=== PATIENT | male | born 1935 | race Caucasian/White ===

== ENCOUNTER 2019-05-12 18:56 | Inpatient (IN) | payer MEDICARE, OTHER ==
[~2019-05-12] VITALS: Ht 165.1 cm; Wt 84.8 kg
[~2019-05-12 18:56] MED LIST: ATOR80TA PO; CLOP75TA15 PO; FENO145T38 PO; FURO40TA4 PO; ISOS60TA4 PO; METO-384 PO
[2019-05-12 19:23] LABS: BASOPHILS % (AUTO) 0.3 % (0-1); EOSINOPHILS # (AUTO) 0.3 X10'3 (0-0.9); EOSINOPHILS % (AUTO) 2.3 % (0-6); HEMATOCRIT 47.9 % (42.0-52.0); HEMOGLOBIN 15.8 g/dl (14.0-17.9); LYMPHOCYTES # (AUTO) 2.7 X10'3 (1.1-4.8); LYMPHOCYTES % (AUTO) 23.3 % (21-51); MEAN CORPUSCULAR HEMOGLOBIN 30.7 PG (27.0-31.0); MEAN CORPUSCULAR VOLUME 92.8 FL (78-98); MONOCYTES % (AUTO) 8.6 % (2-12); NEUTROPHILS # (AUTO) 7.6 X10'3 (1.8-7.7); NEUTROPHILS % (AUTO) 65.5 % (42-75); PLATELET COUNT 223 X10'3 (140-440); RED BLOOD COUNT 5.16 X10'6 (4.70-6.10); RED CELL DISTRIBUTION WIDTH 13.6 % (11.5-14.5); WHITE BLOOD COUNT 11.7 X10'3 (4.5-11.0)
[2019-05-12 19:36] LABS: ALANINE AMINOTRANSFERASE 46 U/L (12-78); ALBUMIN 3.5 G/DL (3.4-5.0); ALBUMIN/GLOBULIN RATIO 0.8 (1.1-1.5); ALKALINE PHOSPHATASE 122 IU/L (46-116); ANION GAP 9 (8-16); ASPARTATE AMINO TRANSFERASE 29 U/L (10-37); BILIRUBIN,TOTAL 0.9 MG/DL (0.1-1.0); BLOOD UREA NITROGEN 19 MG/DL (7-18); BUN/CREATININE RATIO 15.4 (5.4-32.0); CALCIUM 9.3 MG/DL (8.5-10.1); CHLORIDE 105 MMOL/L (99-107); CREATININE 1.23 MG/DL (0.60-1.10); GLUCOSE 160 MG/DL (70-104); POTASSIUM 3.9 MMOL/L (3.5-5.1); SODIUM 142 MMOL/L (135-145); TOTAL CARBON DIOXIDE 27.6 MMOL/L (24-32); TOTAL PROTEIN 7.9 G/DL (6.4-8.2); eGFR 56 ML/MIN
[2019-05-12 19:39] LABS: TROPONIN I < 0.04 NG/ML (0.0-0.05)
[2019-05-12 19:41] LABS: PARTIAL THROMBOPLASTIN TIME 29 SECONDS (22-32)
[2019-05-12] MEDS ORDERED: aspirin 325mg tablet PO ONE (20:55)
--- NOTE | 2019-05-12 21:27 | NUR ---
TELE NEURO IN PROGRESS AT THIS TIME.
--- NOTE | 2019-05-12 21:40 | NUR ---
Neuro consult completed with tele-neuro MD.
[2019-05-12] MEDS ORDERED: CHOL10002 PO (22:22)
[2019-05-12] MEDS ORDERED: LORA0.5T PO (22:22)
[2019-05-12] MEDS ORDERED: METO50TA17 PO (22:22)
[2019-05-12] MEDS ORDERED: ATOR-2 PO (22:22)
[2019-05-12] MEDS ORDERED: SITA50TA PO (22:22)
[2019-05-12] MEDS ORDERED: METF-438 PO (22:22)
[2019-05-12] MEDS ORDERED: POTA20TA19 PO (22:22)
[2019-05-12] MEDS ORDERED: OLAN5TAB26 PO (22:22)
[2019-05-12] MEDS ORDERED: LEVO100T9 PO (22:22)
[2019-05-12] MEDS ORDERED: potassium Cl 20 mEq SR tablet PO PRN ×2 (23:00)
[2019-05-12] MEDS ORDERED: magnesium 2GM in 50ml NS 50 ML IV PRN (23:00)
[2019-05-12] MEDS ORDERED: magnesium 4gm in 100ml NS 100 ML IV PRN (23:00)
[2019-05-12] MEDS ORDERED: magnesium hydroxide 30ml (MOM) UD suspension PO PRN (23:00)
[2019-05-12] MEDS ORDERED: magnesium Cl slow-release 64mg tablet PO PRN (23:00)
[2019-05-12] MEDS ORDERED: ondansetron/PF 4mg/2ml inj IV PRN (23:00)
[2019-05-12] MEDS ORDERED: mag hydrox/Alum hydrox/simeth 30ml oral suspension PO PRN (23:00)
[2019-05-12] MEDS ORDERED: potassium CL 10mEq/100ml bag 100 ML IV PRN ×2 (23:00)
[2019-05-12] MEDS ORDERED: acetaminophen 325mg tablet PO PRN ×2 (23:00)
[2019-05-13 00:35] VITALS: BP 135/71
[2019-05-13] MEDS ORDERED: dextrose ORAL solution 15 GM/59 ML bottle PO PRN ×2 (01:00)
[2019-05-13] MEDS ORDERED: LORazepam 0.5 MG tablet PO PRN (01:00)
[2019-05-13] MEDS ORDERED: MESSAGE TO PHARMACY PO ONE (01:00)
[2019-05-13] MEDS ORDERED: glucagon, human recombinant 1mg kit SUBCUT PRN (01:00)
[2019-05-13] MEDS ORDERED: dextrose 50%-water 50ml dispensing syringe IV PRN ×2 (01:00)
[2019-05-13] MEDS ORDERED: insulin Lispro (HumaLOG) vial - multi-dose SQ SCH (01:00)
--- NOTE | 2019-05-13 01:22 | NUR ---
Report taken by other nurse, erin Hernández.. Pt is transferred up to the floor via gurney and one attendant. Transferred to bed via slide board and four attendants. Pt VSS, pt is A&Ox zero. cannot perform DART r/t pt inability to answer questions. Tele neuro consult provided. CT (-) for acute findings. Bed alarm enabled for safety.
[2019-05-13 06:00] VITALS: BP 141/73
--- NOTE | 2019-05-13 06:00 | NUR ---
Patient in room ORTHO 4009. I have received report from Iva LI and had the opportunity to ask questions and assume patient care.
[2019-05-13 06:04] LABS: BASOPHILS % (AUTO) 0.4 % (0-1); EOSINOPHILS # (AUTO) 0.3 X10'3 (0-0.9); EOSINOPHILS % (AUTO) 2.7 % (0-6); HEMATOCRIT 43.8 % (42.0-52.0); HEMOGLOBIN 14.6 g/dl (14.0-17.9); LYMPHOCYTES # (AUTO) 2.6 X10'3 (1.1-4.8); LYMPHOCYTES % (AUTO) 26.8 % (21-51); MEAN CORPUSCULAR HEMOGLOBIN 30.8 PG (27.0-31.0); MEAN CORPUSCULAR HGB CONC 33.4 g/dL (33.0-36.5); MEAN CORPUSCULAR VOLUME 92.4 FL (78-98); MEAN PLATELET VOLUME 8.8 FL (7.4-10.4); MONOCYTES # (AUTO) 0.8 X10'3 (0-0.9); MONOCYTES % (AUTO) 8.8 % (2-12); NEUTROPHILS # (AUTO) 5.8 X10'3 (1.8-7.7); NEUTROPHILS % (AUTO) 61.3 % (42-75); PLATELET COUNT 177 X10'3 (140-440); RED BLOOD COUNT 4.74 X10'6 (4.70-6.10); RED CELL DISTRIBUTION WIDTH 13.5 % (11.5-14.5); WHITE BLOOD COUNT 9.5 X10'3 (4.5-11.0)
--- NOTE | 2019-05-13 06:06 | NUR ---
Report given to erin Dillon.
[2019-05-13 06:21] LABS: HEMOGLOBIN A1C 10.4 % (4.5-6.2)
[2019-05-13 06:38] LABS: ANION GAP 12 (8-16); BLOOD UREA NITROGEN 17 MG/DL (7-18); BUN/CREATININE RATIO 16.8 (5.4-32.0); CALCIUM 8.5 MG/DL (8.5-10.1); CHLORIDE 108 MMOL/L (99-107); CHOL/HDL RATIO 4.2 (0.00-4.99); CHOLESTEROL 110 MG/DL (0-200); CREATININE 1.01 MG/DL (0.60-1.10); GLUCOSE 141 MG/DL (70-104); HDL CHOLESTEROL 26 MG/DL (35-60); LDL CHOLESTEROL 67 MG/DL (50-100); MAGNESIUM 1.4 MG/DL (1.5-2.4); POTASSIUM 3.6 MMOL/L (3.5-5.1); SODIUM 143 MMOL/L (135-145); TOTAL CARBON DIOXIDE 23.5 MMOL/L (24-32); TRIGLYCERIDES 132 MG/DL (20-135); eGFR 70 ML/MIN
[2019-05-13 06:47] VITALS: BP_SYST 119; BP_SYST 124; BP_SYST 130; BP_DIAS 66; BP_DIAS 68; BP_DIAS 73
[2019-05-13] MEDS ORDERED: isosorbide mononitrate 30mg tab.SR.24H PO SCH (08:00)
[2019-05-13] MEDS ORDERED: OLANZAPINE 5 MG TABLET PO SCH (08:00)
[2019-05-13] MEDS ORDERED: levoTHYROXINE 100mcg tablet PO SCH (08:00)
[2019-05-13] MEDS ORDERED: metoprolol tartrate 50mg tablet PO SCH (08:00)
[2019-05-13] MEDS ORDERED: vitamin D (cholecalciferol) 1,000 unit tablet PO SCH (08:00)
[2019-05-13] MEDS ORDERED: K and/or MAG REPLACEMENT MC SCH (08:00)
[2019-05-13] MEDS ORDERED: clopidogrel 75mg tablet PO SCH (08:00)
[2019-05-13] MEDS ORDERED: enoxaparin 40mg/0.4ml syringe SQ SCH (08:00)
[2019-05-13] MEDS ORDERED: aspirin 81mg tablet.DR PO SCH (08:00)
[2019-05-13] MEDS ORDERED: atorvastatin 20mg tablet PO SCH (08:00)
[2019-05-13] MEDS ORDERED: ASPI81TA52 PO (08:21)
[2019-05-13 08:36] VITALS: BP_SYST 141
--- NOTE | 2019-05-13 09:00 | NUR ---
Dr. Jaramillo cancelled MRI and EEG. He believes patient is back to baseline, as he has dementia. Patient appears to be more alert now than when he first got here. Dr. Jaramillo is discharging patient back to [facility].
--- NOTE | 2019-05-13 11:29 | NUR ---
Patient stable for discharge back to [facility]. All belongs sent with patient and caregiver. IV out and discharge papers given to caregiver.
[2019-05-13] MEDS ORDERED: insulin glargine (Lantus) pen - multi-dose SQ SCH (21:00)
== END 2019-05-13 11:10 | DRG 69 ==
LOC: ER 18:57 → ORTHO 4S 23:59 → CMPBEDREQ 05-13 00:52 → ORTHO 4S 05-13 00:58
PROVIDERS: ADMIT Hospitalist; ATTEND Internal Medicine
DX: G45.9 Transient cerebral ischemic attack, unspecified (principal); G93.40 Encephalopathy, unspecified; R47.01 Aphasia; N17.9 Acute kidney failure, unspecified; F03.90 Unspecified dementia, unspecified severity, without behavioral disturbance, psychotic disturbance, mood disturbance, and anxiety; E83.42 Hypomagnesemia; E03.9 Hypothyroidism, unspecified; E78.5 Hyperlipidemia, unspecified; E11.9 Type 2 diabetes mellitus without complications; E78.00 Pure hypercholesterolemia, unspecified; F41.9 Anxiety disorder, unspecified; I10 Essential (primary) hypertension; I48.91 Unspecified atrial fibrillation; Z79.02 Long term (current) use of antithrombotics/antiplatelets; Z79.84 Long term (current) use of oral hypoglycemic drugs; Z79.899 Other long term (current) drug therapy
CPT/HCPCS: 36415; 70450; 71045; 80048; 80053; 80061; 82948; 83036; 83735; 84443; 84484; 85025; 85610; 85730; 87081; 92508; 92616; 93005; 97116; 97161; 97530; 99285; G0378; J1650; J1815

== ENCOUNTER 2019-06-30 16:48 | Inpatient (IN) | payer MEDICARE, OTHER ==
[~2019-06-30] VITALS: Ht 177.8 cm; Wt 91.0 kg
[~2019-06-30 16:48] MED LIST changes: +ATOR-2 PO; -ATOR80TA PO; +CHOL10002 PO; -FENO145T38 PO; +LEVO100T9 PO; +LORA0.5T PO; +METF-438 PO; -METO-384 PO; +METO50TA17 PO; +OLAN5TAB26 PO; +POTA20TA19 PO; +SITA50TA PO
[2019-06-30 17:13] LABS: BASOPHILS # (AUTO) 0.1 X10'3 (0-0.2); BASOPHILS % (AUTO) 0.3 % (0-1); EOSINOPHILS # (AUTO) 0.2 X10'3 (0-0.9); EOSINOPHILS % (AUTO) 1.3 % (0-6); HEMATOCRIT 43.2 % (42.0-52.0); HEMOGLOBIN 14.5 g/dl (14.0-17.9); LYMPHOCYTES # (AUTO) 2.3 X10'3 (1.1-4.8); MEAN CORPUSCULAR HEMOGLOBIN 30.7 PG (27.0-31.0); MEAN CORPUSCULAR HGB CONC 33.5 g/dL (33.0-36.5); MEAN CORPUSCULAR VOLUME 91.6 FL (78-98); MONOCYTES # (AUTO) 1.2 X10'3 (0-0.9); MONOCYTES % (AUTO) 7.8 % (2-12); NEUTROPHILS # (AUTO) 12.4 X10'3 (1.8-7.7); NEUTROPHILS % (AUTO) 76.6 % (42-75); PLATELET COUNT 259 X10'3 (140-440); RED BLOOD COUNT 4.72 X10'6 (4.70-6.10); RED CELL DISTRIBUTION WIDTH 14.5 % (11.5-14.5); WHITE BLOOD COUNT 16.1 X10'3 (4.5-11.0)
[2019-06-30] MEDS ORDERED: normal saline 1000ML IV soln IVB ONE (17:15)
[2019-06-30 17:20] LABS: PARTIAL THROMBOPLASTIN TIME 29 SECONDS (22-32)
[2019-06-30 17:22] LABS: ALANINE AMINOTRANSFERASE 38 U/L (12-78); ALBUMIN 3.9 G/DL (3.4-5.0); ALBUMIN/GLOBULIN RATIO 0.8 (1.1-1.5); ALKALINE PHOSPHATASE 133 IU/L (46-116); ANION GAP 14 (8-16); ASPARTATE AMINO TRANSFERASE 30 U/L (10-37); BILIRUBIN,TOTAL 0.9 MG/DL (0.1-1.0); BLOOD UREA NITROGEN 21 MG/DL (7-18); BUN/CREATININE RATIO 16.9 (5.4-32.0); CALCIUM 9.1 MG/DL (8.5-10.1); CHLORIDE 101 MMOL/L (99-107); CREATININE 1.24 MG/DL (0.60-1.10); GLUCOSE 123 MG/DL (70-104); POTASSIUM 3.6 MMOL/L (3.5-5.1); SODIUM 142 MMOL/L (135-145); TOTAL CARBON DIOXIDE 26.7 MMOL/L (24-32); eGFR 55 ML/MIN
[2019-06-30 17:26] LABS: TROPONIN I < 0.04 NG/ML (0.0-0.05)
--- NOTE | 2019-06-30 17:32 | NUR ---
Called for level 1 stroke alert last known normal 1530 found talking gibberish not normal so 911 was called. Neurotelemedicine evaluation completed and recomendations given to Dr Barnett.
[2019-06-30] MEDS ORDERED: HYDR28CR14 TOP (17:44)
[2019-06-30] MEDS ORDERED: NITR0.4T SL (17:44)
[2019-06-30] MEDS ORDERED: LORA-269 PO (17:48)
[2019-06-30] MEDS ORDERED: levoFLOXACIN-Levaquin 750MG/D5 150 ML IV ONE (17:55)
[2019-06-30] MEDS ORDERED: normal saline 1000ML IV soln IV ONE (17:55)
[2019-06-30 17:59] LABS: CLARITY,URINE CLEAR (Clear); COLOR,URINE YELLOW (Yellow); GLUCOSE, URINE NEGATIVE (Neg); KETONES,URINE NEGATIVE (Neg); LEUKOCYTE ESTERASE ,URINE NEGATIVE (Neg); NITRITES, URINE NEGATIVE (Neg); OCCULT BLOOD,URINE NEGATIVE (Neg); PROTEIN,URINE NEGATIVE (Neg); UROBILINOGEN,URINE 0.2 E.U/dL (0.2-1.0)
[2019-06-30 18:04] LABS: UA COLLECTION TYPE STRAIGHT CATH
[2019-06-30] MEDS ORDERED: vancomycin/NS 1 GM ADD-VANTAGE 250 ML IV ONE (18:35)
--- NOTE | 2019-06-30 20:28 | NUR ---
Pt turned and changed out of urine saturated diaper. Tympanic temp 101.4, hr 114. Dr. Gonsalves notified and rectal tylenol ordered. currently receiving vancomycin and fluid bolus.
[2019-06-30] MEDS ORDERED: acetaminophen 325mg rectal suppository RC ONE (20:35)
[2019-06-30] MEDS ORDERED: acetaminophen 650mg rectal suppository RC ONE ×2 (20:51→20:52)
--- NOTE | 2019-06-30 21:40 | NUR ---
dr veliz, hospitalist , at bedside for admission.
[2019-06-30] MEDS ORDERED: glucagon, human recombinant 1mg kit SUBCUT PRN (21:55)
[2019-06-30] MEDS ORDERED: insulin Lispro (HumaLOG) vial - multi-dose SQ SCH (21:55)
[2019-06-30] MEDS ORDERED: dextrose ORAL solution 15 GM/59 ML bottle PO PRN ×2 (21:55)
[2019-06-30] MEDS ORDERED: acetaminophen 325mg tablet PO PRN ×2 (21:55)
[2019-06-30] MEDS ORDERED: cefepime 2gm inj IV SCH (21:55)
[2019-06-30] MEDS ORDERED: magnesium hydroxide 30ml (MOM) UD suspension PO PRN (21:55)
[2019-06-30] MEDS ORDERED: ondansetron/PF 4mg/2ml inj IV PRN (21:55)
[2019-06-30] MEDS ORDERED: MESSAGE TO PHARMACY PO ONE (21:55)
[2019-06-30] MEDS ORDERED: dextrose 50%-water 50ml dispensing syringe IV PRN ×2 (21:55)
[2019-06-30] MEDS ORDERED: mag hydrox/Alum hydrox/simeth 30ml oral suspension PO PRN (21:55)
[2019-06-30] MEDS: azithromycin/NS 500mg/250ml 250 ML IV SCH (22:09)
[2019-06-30] MEDS: normal saline 1000ml 1,000 ML IV SCH (22:10)
[2019-06-30] MEDS ORDERED: LORazepam 0.5 MG tablet PO PRN (22:35)
--- NOTE | 2019-06-30 22:45 | NUR ---
PT ARRIVED TO 4011B FROM ER. PT IS ORIENTED TO SELF ONLY AND NOT FOLLOWING DIRECTIONS. ON SOFT RESTRAINT ON BILAT WRISTS FOR NOW. VSS. 2 RN SKIN CHECK PERFORMED. RECEIVED REPORT FROM [facility] PRIOR TO PT'S ARRIVAL.
[2019-06-30 23:11] VITALS: BP 102/55
[2019-06-30] MEDS: cefepime 2g/NS 100ml ADVANTAGE 100 ML IV SCH (23:21)
[2019-07-01 02:00] VITALS: BP 116/59
[2019-07-01 06:00] VITALS: BP 112/64
--- NOTE | 2019-07-01 06:14 | NUR ---
Patient in room ORTHO 4011. I have received report from and had the opportunity to ask questions and assume patient care GUILLERMO Hoffman.
[2019-07-01 06:17] LABS: BASOPHILS % (AUTO) 0.1 % (0-1); EOSINOPHILS # (AUTO) 0.2 X10'3 (0-0.9); EOSINOPHILS % (AUTO) 1.5 % (0-6); HEMATOCRIT 40.1 % (42.0-52.0); HEMOGLOBIN 13.5 g/dl (14.0-17.9); LYMPHOCYTES # (AUTO) 2.5 X10'3 (1.1-4.8); MEAN CORPUSCULAR HEMOGLOBIN 30.8 PG (27.0-31.0); MEAN CORPUSCULAR HGB CONC 33.6 g/dL (33.0-36.5); MEAN CORPUSCULAR VOLUME 91.6 FL (78-98); MEAN PLATELET VOLUME 9.4 FL (7.4-10.4); MONOCYTES # (AUTO) 1.2 X10'3 (0-0.9); MONOCYTES % (AUTO) 7.7 % (2-12); NEUTROPHILS # (AUTO) 11.6 X10'3 (1.8-7.7); NEUTROPHILS % (AUTO) 74.7 % (42-75); PLATELET COUNT 174 X10'3 (140-440); RED BLOOD COUNT 4.37 X10'6 (4.70-6.10); RED CELL DISTRIBUTION WIDTH 15.1 % (11.5-14.5); WHITE BLOOD COUNT 15.5 X10'3 (4.5-11.0)
--- NOTE | 2019-07-01 06:42 | NUR ---
Problems reprioritized. Patient report given, questions answered & plan of care reviewed with GUILLERMO DE LOS SANTOS.
[2019-07-01 07:00] VITALS: BP 118/59
[2019-07-01 07:08] LABS: ANION GAP 12 (8-16); BLOOD UREA NITROGEN 15 MG/DL (7-18); BUN/CREATININE RATIO 16.5 (5.4-32.0); CALCIUM 7.9 MG/DL (8.5-10.1); CHLORIDE 108 MMOL/L (99-107); CREATININE 0.91 MG/DL (0.60-1.10); GLUCOSE 82 MG/DL (70-104); SODIUM 143 MMOL/L (135-145); TOTAL CARBON DIOXIDE 22.8 MMOL/L (24-32); eGFR 79 ML/MIN
[2019-07-01 07:09] LABS: POTASSIUM 2.7 MMOL/L (3.5-5.1)
--- NOTE | 2019-07-01 07:26 | NUR ---
Dr Jaramillo: PAGER ID: [phone] MESSAGE: [phone] Juan Antonio Calderon: CRITICAL LAB: Potassium 2.7. Need replacement protocol order. Thank you, Rosetta [phone]
[2019-07-01] MEDS: cefepime 2g/NS 100ml ADVANTAGE 100 ML IV SCH ×2 (07:50→21:54)
[2019-07-01] MEDS: normal saline 1000ml 1,000 ML IV SCH ×2 (07:52→17:52)
[2019-07-01] MEDS: azithromycin/NS 500mg/250ml 250 ML IV SCH (08:00)
[2019-07-01] MEDS: furosemide 40mg tablet PO SCH ×2 (08:00→19:06)
[2019-07-01] MEDS: levoTHYROXINE 100mcg tablet PO SCH (08:17)
[2019-07-01] MEDS: clopidogrel 75mg tablet PO SCH (08:18)
[2019-07-01] MEDS: isosorbide mononitrate 30mg tab.SR.24H PO SCH (08:19)
[2019-07-01] MEDS: enoxaparin 40mg/0.4ml syringe SUBCUT SCH (08:19)
[2019-07-01] MEDS: metoprolol tartrate 50mg tablet PO SCH ×2 (08:28→19:07)
[2019-07-01] MEDS: atorvastatin 20mg tablet PO SCH (08:28)
[2019-07-01] MEDS: linagliptin 5mg tablet PO SCH (08:29)
[2019-07-01] MEDS: potassium Cl 20 mEq SR tablet PO SCH (08:29)
[2019-07-01] MEDS: OLANZAPINE 5 MG TABLET PO SCH (08:29)
[2019-07-01] MEDS: vitamin D (cholecalciferol) 1,000 unit tablet PO SCH (08:29)
[2019-07-01 09:30] VITALS: BP 126/53
[2019-07-01] MEDS: diphenhydrAMINE 25mg capsule PO PRN ×2 (10:44→22:47)
--- NOTE | 2019-07-01 11:40 | NUR ---
Student Medication Administration:For this medication-pass time frame 5600-3340, all medications were reviewed, administered and documented per hospital policy by Fidel Crespo. Student documentation:I have reviewed and agree with all interventions, assessments performed and documented by Fidel Crespo.
--- NOTE | 2019-07-01 12:15 | NUR ---
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 Rash spreading, increased itch after oral/topical benedryl. Pt increased agitation. Requiring a sitter in room. thank you, Rosetta [phone]
[2019-07-01] MEDS ORDERED: potassium CL 10mEq/100ml bag 100 ML IV PRN (13:35)
[2019-07-01] MEDS ORDERED: potassium Cl 20 mEq SR tablet PO PRN (13:35)
[2019-07-01 18:00] VITALS: BP 137/81
--- NOTE | 2019-07-01 18:40 | NUR ---
Problems reprioritized. Patient report given, questions answered & plan of care reviewed with GUILLERMO Hoffman.
[2019-07-01] MEDS: potassium Cl 20 mEq SR tablet PO PRN ×2 (19:04→22:48)
[2019-07-01] MEDS: lactobacillus rhamnosus 10,000 MMU CELLS/CAPSULE PO SCH (19:06)
[2019-07-01] MEDS: hydrocortisone 1% cream 28gm TP SCH (19:10)
[2019-07-01] MEDS ORDERED: insulin glargine (Lantus) pen - multi-dose SQ SCH (21:00)
[2019-07-01 22:00] VITALS: BP 123/56
[2019-07-02 04:42] LABS: ALBUMIN 2.6 G/DL (3.4-5.0); ANION GAP 10 (8-16); BASOPHILS % (AUTO) 0.1 % (0-1); BLOOD UREA NITROGEN 10 MG/DL (7-18); BUN/CREATININE RATIO 11.4 (5.4-32.0); CHLORIDE 110 MMOL/L (99-107); CREATININE 0.88 MG/DL (0.60-1.10); EOSINOPHILS # (AUTO) 0.3 X10'3 (0-0.9); EOSINOPHILS % (AUTO) 2.8 % (0-6); GLUCOSE 112 MG/DL (70-104); HEMOGLOBIN 11.6 g/dl (14.0-17.9); LYMPHOCYTES % (AUTO) 18.1 % (21-51); MEAN CORPUSCULAR HEMOGLOBIN 30.7 PG (27.0-31.0); MEAN CORPUSCULAR VOLUME 90.4 FL (78-98); MEAN PLATELET VOLUME 8.9 FL (7.4-10.4); MONOCYTES # (AUTO) 1.3 X10'3 (0-0.9); MONOCYTES % (AUTO) 11.1 % (2-12); NEUTROPHILS # (AUTO) 7.7 X10'3 (1.8-7.7); NEUTROPHILS % (AUTO) 67.9 % (42-75); PLATELET COUNT 195 X10'3 (140-440); POTASSIUM 3.2 MMOL/L (3.5-5.1); RED BLOOD COUNT 3.76 X10'6 (4.70-6.10); RED CELL DISTRIBUTION WIDTH 14.9 % (11.5-14.5); SODIUM 145 MMOL/L (135-145); WHITE BLOOD COUNT 11.3 X10'3 (4.5-11.0); eGFR 82 ML/MIN
[2019-07-02] MEDS: normal saline 1000ml 1,000 ML IV SCH (05:11)
[2019-07-02 06:00] VITALS: BP 159/96
--- NOTE | 2019-07-02 06:30 | NUR ---
Patient in room ORTHO 4011. I have received report from GUILLERMO Hoffman and had the opportunity to ask questions and assume patient care.
[2019-07-02] MEDS: hydrocortisone 1% cream 28gm TP SCH (08:00)
[2019-07-02 10:00] VITALS: BP 138/53
[2019-07-02] MEDS: cefepime 2g/NS 100ml ADVANTAGE 100 ML IV SCH (10:22)
[2019-07-02] MEDS: clopidogrel 75mg tablet PO SCH (10:25)
[2019-07-02] MEDS: linagliptin 5mg tablet PO SCH (10:25)
[2019-07-02] MEDS: OLANZAPINE 5 MG TABLET PO SCH (10:25)
[2019-07-02] MEDS: levoTHYROXINE 100mcg tablet PO SCH (10:25)
[2019-07-02] MEDS: potassium Cl 20 mEq SR tablet PO SCH (10:26)
[2019-07-02 10:27] VITALS: BP_SYST 138
[2019-07-02] MEDS: metoprolol tartrate 50mg tablet PO SCH (10:27)
[2019-07-02] MEDS: furosemide 40mg tablet PO SCH (10:28)
[2019-07-02] MEDS: enoxaparin 40mg/0.4ml syringe SUBCUT SCH (10:29)
[2019-07-02] MEDS: azithromycin/NS 500mg/250ml 250 ML IV SCH (11:04)
[2019-07-02] MEDS ORDERED: LEVO750T21 PO (12:14)
[2019-07-02] MEDS ORDERED: DIPH-423 PO (12:14)
[2019-07-02] MEDS: diphenhydrAMINE 25mg capsule PO PRN (12:15)
[2019-07-02] MEDS: isosorbide mononitrate 30mg tab.SR.24H PO SCH (12:15)
[2019-07-02] MEDS: lactobacillus rhamnosus 10,000 MMU CELLS/CAPSULE PO SCH (12:53)
[2019-07-02] MEDS: atorvastatin 20mg tablet PO SCH (12:54)
[2019-07-02] MEDS: vitamin D (cholecalciferol) 1,000 unit tablet PO SCH (12:54)
--- NOTE | 2019-07-02 16:35 | NUR ---
pt to be transferred back to [facility]. Rx called into pts pharmacy, [facility].
--- NOTE | 2019-07-02 17:17 | NUR ---
pt discharged to [facility] via wheelchair per [facility] transport.
[2019-07-03] MEDS ORDERED: azithromycin 250mg tablet PO SCH (08:00)
[2019-07-03] MEDS ORDERED: LORA-268 PO (17:25)
[2019-07-03] MEDS ORDERED: DIPH25CA83 PO (17:25)
[2019-07-03] MEDS ORDERED: LEVO750T21 PO (17:25)
== END 2019-07-02 17:15 | DRG 871 ==
LOC: ER 16:48 → ED HOLD 22:02 → ORTHO 4S 22:40 → CMPBEDREQ 22:57
PROVIDERS: ADMIT Emergency Medicine; ATTEND Internal Medicine
DX: A41.9 Sepsis, unspecified organism (principal); J18.9 Pneumonia, unspecified organism; G93.41 Metabolic encephalopathy; E87.2 Acidosis; E03.9 Hypothyroidism, unspecified; E87.6 Hypokalemia; F41.9 Anxiety disorder, unspecified; R21 Rash and other nonspecific skin eruption; E11.9 Type 2 diabetes mellitus without complications; E78.00 Pure hypercholesterolemia, unspecified; F03.90 Unspecified dementia, unspecified severity, without behavioral disturbance, psychotic disturbance, mood disturbance, and anxiety; I10 Essential (primary) hypertension; I48.91 Unspecified atrial fibrillation; Z79.02 Long term (current) use of antithrombotics/antiplatelets; Z79.84 Long term (current) use of oral hypoglycemic drugs
CPT/HCPCS: 36415; 70450; 71045; 80048; 80053; 81003; 82140; 82948; 83605; 84145; 84443; 84484; 85025; 85610; 85730; 87040; 87081; 92508; 92616; 93005; 96361; 96365; 96366; 96368; 97116; 97161; 97530; 99285; G0378; J0456; J0692; J1650; J1815; J1956; J3370; J7030; Q0163

== ENCOUNTER 2019-07-03 14:43 | Inpatient (IN) | payer MEDICARE ==
[~2019-07-03] VITALS: Ht 177.8 cm; Wt 90.0 kg
[~2019-07-03 14:43] MED LIST changes: +DIPH-423 PO; +HYDR28CR14 TOP; +LEVO750T21 PO; +LORA-269 PO; -LORA0.5T PO; +NITR0.4T SL
[2019-07-03] MEDS ORDERED: normal saline 1000ML IV soln IV ONE (14:50)
[2019-07-03] MEDS ORDERED: cefepime 1GM/NS ADD-VANTAGE 100 ML IV ONE (15:35)
[2019-07-03] MEDS ORDERED: vancomycin/NS 1 GM ADD-VANTAGE 250 ML IV ONE (15:35)
[2019-07-03] MEDS ORDERED: azithromycin/NS 500mg/250ml 250 ML IV ONE (15:35)
[2019-07-03 15:49] LABS: LYMPHOCYTES # (AUTO) 0.9 X10'3 (1.1-4.8); MONOCYTES # (AUTO) 1.6 X10'3 (0-0.9); RED BLOOD COUNT 4.04 X10'6 (4.70-6.10)
[2019-07-03 15:51] LABS: BASOPHILS % (AUTO) 0.2 % (0-1); EOSINOPHILS % (AUTO) 0 % (0-6); HEMATOCRIT 36.7 % (42.0-52.0); HEMOGLOBIN 12.3 g/dl (14.0-17.9); LYMPHOCYTES % (AUTO) 5.1 % (21-51); MEAN CORPUSCULAR HEMOGLOBIN 30.5 PG (27.0-31.0); MEAN CORPUSCULAR HGB CONC 33.6 g/dL (33.0-36.5); MEAN CORPUSCULAR VOLUME 90.9 FL (78-98); MEAN PLATELET VOLUME 8.9 FL (7.4-10.4); MONOCYTES % (AUTO) 9.5 % (2-12); NEUTROPHILS # (AUTO) 14.8 X10'3 (1.8-7.7); NEUTROPHILS % (AUTO) 85.2 % (42-75); PLATELET COUNT 214 X10'3 (140-440); RED CELL DISTRIBUTION WIDTH 14.8 % (11.5-14.5); WHITE BLOOD COUNT 17.4 X10'3 (4.5-11.0)
[2019-07-03 15:59] LABS: PARTIAL THROMBOPLASTIN TIME 32 SECONDS (22-32)
[2019-07-03 16:04] LABS: ALANINE AMINOTRANSFERASE 27 U/L (12-78); ALBUMIN 2.7 G/DL (3.4-5.0); ALBUMIN/GLOBULIN RATIO 0.6 (1.1-1.5); ALKALINE PHOSPHATASE 93 IU/L (46-116); ANION GAP 15 (8-16); ASPARTATE AMINO TRANSFERASE 45 U/L (10-37); BILIRUBIN,TOTAL 1.8 MG/DL (0.1-1.0); BLOOD UREA NITROGEN 15 MG/DL (7-18); BUN/CREATININE RATIO 14.6 (5.4-32.0); CALCIUM 9.5 MG/DL (8.5-10.1); CHLORIDE 107 MMOL/L (99-107); CREATININE 1.03 MG/DL (0.60-1.10); GLUCOSE 161 MG/DL (70-104); POTASSIUM 3.3 MMOL/L (3.5-5.1); SODIUM 147 MMOL/L (135-145); TOTAL CARBON DIOXIDE 25.4 MMOL/L (24-32); TOTAL PROTEIN 7.5 G/DL (6.4-8.2); eGFR 69 ML/MIN
[2019-07-03 16:13] LABS: MAGNESIUM 1.1 MG/DL (1.5-2.4); TROPONIN I 0.05 NG/ML (0.0-0.05)
[2019-07-03] MEDS ORDERED: magnesium 2GM in 50ml NS 50 ML IV ONE (16:30)
[2019-07-03] MEDS ORDERED: LEVO750T21 PO (17:25)
[2019-07-03] MEDS ORDERED: DIPH25CA83 PO (17:25)
[2019-07-03] MEDS ORDERED: LORA-268 PO (17:25)
[2019-07-03] MEDS ORDERED: HYDROcodone/acetaminophen 5mg/325mg tablet PO PRN (17:35)
[2019-07-03] MEDS ORDERED: ondansetron/PF 4mg/2ml inj IV PRN (17:35)
[2019-07-03] MEDS ORDERED: acetaminophen 325mg tablet PO PRN ×2 (17:35)
[2019-07-03] MEDS ORDERED: mag hydrox/Alum hydrox/simeth 30ml oral suspension PO PRN (17:35)
[2019-07-03] MEDS ORDERED: morphine 2 MG/ML inj. syringe IV PRN ×2 (17:35)
[2019-07-03] MEDS ORDERED: magnesium hydroxide 30ml (MOM) UD suspension PO PRN (17:35)
[2019-07-03] MEDS ORDERED: insulin Lispro (HumaLOG) vial - multi-dose SQ SCH (17:40)
[2019-07-03] MEDS ORDERED: dextrose ORAL solution 15 GM/59 ML bottle PO PRN ×2 (17:40)
[2019-07-03] MEDS ORDERED: dextrose 50%-water 50ml dispensing syringe IV PRN ×2 (17:40)
[2019-07-03] MEDS ORDERED: glucagon, human recombinant 1mg kit SUBCUT PRN (17:40)
[2019-07-03] MEDS ORDERED: MESSAGE TO PHARMACY PO ONE (17:40)
--- NOTE | 2019-07-03 19:22 | NUR ---
spoke with dr HERNANDEZ ABOUT PT URINE SPECIMAN NOT BEING COLLECTED . NOTE PT IS INCONTINENT , AND CLEARFIED IF WOULD LIKE TO HAVE A INDWELLING CATH VS A STRIGHT CATH , DR MITCHELL CONFIRMED STRIGHT CATH WOULD BE SUFFICIENT AT THIS TIME . PT STRIGHT CATHED WITH A 18 [place] WITH REMOVAL OF 620 ML OF STRAW COLORED URINE. SPECIMAN SENT TO LAB , PT REPOSITIONED AND CHANGED BREIF IN BED AND HOB ELEVATED 30 DEGREES. PT CONTENT AT THIS TIME
[2019-07-03 19:24] LABS: CLARITY,URINE CLEAR (Clear); COLOR,URINE YELLOW (Yellow); GLUCOSE, URINE NEGATIVE (Neg); KETONES,URINE NEGATIVE (Neg); LEUKOCYTE ESTERASE ,URINE NEGATIVE (Neg); NITRITES, URINE NEGATIVE (Neg); OCCULT BLOOD,URINE TRACE-INTACT (Neg); PH,URINE 5.5 (4.8-8.0); PROTEIN,URINE NEGATIVE (Neg); UROBILINOGEN,URINE 0.2 E.U/dL (0.2-1.0)
[2019-07-03 19:31] LABS: UA COLLECTION TYPE STRAIGHT CATH
[2019-07-03 19:32] LABS: BACTERIA,URINE NONE SEEN /HPF (Neg); MUCUS STRANDS NONE SEEN /LPF (Neg); RBC,URINE NONE SEEN /HPF (0-2); SQUAMOUS EPITHELIAL CELL,UR NONE SEEN /LPF (FEW); WBC,URINE NONE SEEN /HPF (0-4)
[2019-07-03] MEDS: dextrose 5%-1/2 normal saline 1,000 ML IV SCH (19:33)
[2019-07-03] MEDS: furosemide 40mg tablet PO SCH (20:27)
[2019-07-03] MEDS: diphenhydrAMINE 25mg capsule PO SCH (20:29)
[2019-07-03] MEDS: metoprolol tartrate 50mg tablet PO SCH (20:30)
[2019-07-03] MEDS: insulin glargine (Lantus) pen - multi-dose SQ SCH (21:00)
--- NOTE | 2019-07-03 22:31 | NUR ---
ATTEMPTD TO CALL REPORT, RECEIVING RN STARTING IV ON ANOTHER PATIENT, ASKED TO CALL BACK.
[2019-07-03 22:50] VITALS: BP 139/73
--- NOTE | 2019-07-03 22:50 | NUR ---
pt arrived to unit, placed in bed via slideboard. VSS, unable to dart at this time due to ALOC. BLL, call light in reach. 2x rails up. will continue to monitor
[2019-07-04] MEDS: dextrose 5%-1/2 normal saline 1,000 ML IV SCH ×3 (03:35→23:35)
[2019-07-04 04:28] LABS: BASOPHILS % (AUTO) 0.2 % (0-1); EOSINOPHILS # (AUTO) 0.1 X10'3 (0-0.9); EOSINOPHILS % (AUTO) 0.3 % (0-6); HEMATOCRIT 37.4 % (42.0-52.0); HEMOGLOBIN 12.9 g/dl (14.0-17.9); LYMPHOCYTES % (AUTO) 12.5 % (21-51); MEAN CORPUSCULAR HEMOGLOBIN 30.9 PG (27.0-31.0); MEAN CORPUSCULAR HGB CONC 34.5 g/dL (33.0-36.5); MEAN CORPUSCULAR VOLUME 89.5 FL (78-98); MEAN PLATELET VOLUME 9.3 FL (7.4-10.4); MONOCYTES # (AUTO) 1.4 X10'3 (0-0.9); MONOCYTES % (AUTO) 8.5 % (2-12); NEUTROPHILS # (AUTO) 12.8 X10'3 (1.8-7.7); NEUTROPHILS % (AUTO) 78.5 % (42-75); PLATELET COUNT 222 X10'3 (140-440); RED BLOOD COUNT 4.18 X10'6 (4.70-6.10); RED CELL DISTRIBUTION WIDTH 14.8 % (11.5-14.5); WHITE BLOOD COUNT 16.3 X10'3 (4.5-11.0)
[2019-07-04 04:36] LABS: ALBUMIN 2.6 G/DL (3.4-5.0); ANION GAP 10 (8-16); BLOOD UREA NITROGEN 11 MG/DL (7-18); BUN/CREATININE RATIO 11.6 (5.4-32.0); CALCIUM 8.6 MG/DL (8.5-10.1); CHLORIDE 107 MMOL/L (99-107); CREATININE 0.95 MG/DL (0.60-1.10); GLUCOSE 151 MG/DL (70-104); SODIUM 144 MMOL/L (135-145); TOTAL CARBON DIOXIDE 26.7 MMOL/L (24-32); eGFR 75 ML/MIN
[2019-07-04 04:41] LABS: POTASSIUM 2.7 MMOL/L (3.5-5.1)
[2019-07-04] MEDS ORDERED: potassium CL 10mEq/100ml bag 100 ML IV PRN (05:05)
[2019-07-04] MEDS ORDERED: potassium Cl 20 mEq SR tablet PO PRN (05:05)
--- NOTE | 2019-07-04 06:40 | NUR ---
report given to GUILLERMO Cisneros
--- NOTE | 2019-07-04 07:19 | NUR ---
Patient in room [facility]OC[facility] 358. I have received report from Dejan LI and had the opportunity to ask questions and assume patient care.
[2019-07-04] MEDS: furosemide 40mg tablet PO SCH ×2 (07:43→20:09)
[2019-07-04] MEDS: isosorbide mononitrate 30mg tab.SR.24H PO SCH (07:43)
[2019-07-04] MEDS: atorvastatin 20mg tablet PO SCH (07:43)
[2019-07-04] MEDS: clopidogrel 75mg tablet PO SCH (07:43)
[2019-07-04] MEDS: levoTHYROXINE 100mcg tablet PO SCH (07:44)
[2019-07-04] MEDS: metoprolol tartrate 50mg tablet PO SCH ×2 (07:44→20:09)
[2019-07-04] MEDS: vitamin D (cholecalciferol) 1,000 unit tablet PO SCH (07:45)
[2019-07-04] MEDS: OLANZAPINE 5 MG TABLET PO SCH (07:45)
[2019-07-04] MEDS: potassium Cl 20 mEq SR tablet PO PRN ×3 (07:46→20:09)
[2019-07-04 08:00] VITALS: BP 148/72
[2019-07-04] MEDS: potassium Cl 20 mEq SR tablet PO SCH (08:00)
[2019-07-04] MEDS: CefTRIAXone/D5W-Rocephin 1gm 50 ML IV SCH (08:13)
[2019-07-04] MEDS: azithromycin/NS 500mg/250ml 250 ML IV SCH (09:21)
[2019-07-04 11:00] VITALS: BP 126/68
--- NOTE | 2019-07-04 11:54 | NUR ---
DM consult: Pt with A1c 10.4 taken 05/13/19. Pt a poor historian with advanced dementia per H&P, DM education not appropriate at this time. Will continue to follow. Addendum: 07/04/19 at [address] Amended: Links added.
[2019-07-04 18:00] VITALS: BP 130/79
--- NOTE | 2019-07-04 18:05 | NUR ---
Patient in room JOCELYNN 358. I have received report from Amelia LI and had the opportunity to ask questions and assume patient care.
--- NOTE | 2019-07-04 18:20 | NUR ---
Problems reprioritized. Patient report given, questions answered & plan of care reviewed with Sergio LI.
[2019-07-04] MEDS: lactobacillus rhamnosus 10,000 MMU CELLS/CAPSULE PO SCH (20:10)
[2019-07-04] MEDS: diphenhydrAMINE 25mg capsule PO SCH (20:10)
[2019-07-04] MEDS: insulin glargine (Lantus) pen - multi-dose SQ SCH (21:00)
[2019-07-05] VITALS: BP 147/86
[2019-07-05 04:45] LABS: BASOPHILS % (AUTO) 0.2 % (0-1); EOSINOPHILS # (AUTO) 0.2 X10'3 (0-0.9); EOSINOPHILS % (AUTO) 1.1 % (0-6); HEMATOCRIT 35.6 % (42.0-52.0); HEMOGLOBIN 11.9 g/dl (14.0-17.9); LYMPHOCYTES % (AUTO) 14.1 % (21-51); MEAN CORPUSCULAR HEMOGLOBIN 30.6 PG (27.0-31.0); MEAN CORPUSCULAR HGB CONC 33.5 g/dL (33.0-36.5); MEAN CORPUSCULAR VOLUME 91.4 FL (78-98); MEAN PLATELET VOLUME 9.3 FL (7.4-10.4); MONOCYTES # (AUTO) 1.3 X10'3 (0-0.9); MONOCYTES % (AUTO) 9.3 % (2-12); NEUTROPHILS # (AUTO) 10.6 X10'3 (1.8-7.7); NEUTROPHILS % (AUTO) 75.3 % (42-75); PLATELET COUNT 240 X10'3 (140-440); RED BLOOD COUNT 3.89 X10'6 (4.70-6.10); RED CELL DISTRIBUTION WIDTH 14.8 % (11.5-14.5); WHITE BLOOD COUNT 14.1 X10'3 (4.5-11.0)
--- NOTE | 2019-07-05 06:15 | NUR ---
Patient in room [facility]OCELYNN 358. I have received report from GUILLERMO Hill and had the opportunity to ask questions and assume patient care.
--- NOTE | 2019-07-05 06:15 | NUR ---
Problems reprioritized. Patient report given, questions answered & plan of care reviewed with Jamilah RN.
[2019-07-05 07:06] VITALS: BP 136/75
[2019-07-05] MEDS: azithromycin/NS 500mg/250ml 250 ML IV SCH (07:20)
[2019-07-05] MEDS: OLANZAPINE 5 MG TABLET PO SCH (07:24)
[2019-07-05] MEDS: potassium Cl 20 mEq SR tablet PO SCH (07:24)
[2019-07-05] MEDS: vitamin D (cholecalciferol) 1,000 unit tablet PO SCH (07:24)
[2019-07-05] MEDS: clopidogrel 75mg tablet PO SCH (07:24)
[2019-07-05] MEDS: lactobacillus rhamnosus 10,000 MMU CELLS/CAPSULE PO SCH ×2 (07:24→20:10)
[2019-07-05] MEDS: metoprolol tartrate 50mg tablet PO SCH ×2 (07:25→20:10)
[2019-07-05] MEDS: levoTHYROXINE 100mcg tablet PO SCH (07:26)
[2019-07-05] MEDS: isosorbide mononitrate 30mg tab.SR.24H PO SCH (07:26)
[2019-07-05] MEDS: atorvastatin 20mg tablet PO SCH (07:26)
[2019-07-05] MEDS: furosemide 40mg tablet PO SCH ×2 (07:27→20:10)
[2019-07-05 08:22] LABS: ALBUMIN 2.4 G/DL (3.4-5.0); ANION GAP 12 (8-16); BLOOD UREA NITROGEN 17 MG/DL (7-18); BUN/CREATININE RATIO 17.3 (5.4-32.0); CALCIUM 9.9 MG/DL (8.5-10.1); CHLORIDE 107 MMOL/L (99-107); CREATININE 0.98 MG/DL (0.60-1.10); GLUCOSE 139 MG/DL (70-104); POTASSIUM 3.5 MMOL/L (3.5-5.1); SODIUM 144 MMOL/L (135-145); TOTAL CARBON DIOXIDE 25.2 MMOL/L (24-32); eGFR 73 ML/MIN
--- NOTE | 2019-07-05 09:45 | NUR ---
Spoke to Dr. Jaramillo and notified him that pt seems to be breathing in while drinking water, coughing after and pocketing medication. Asked MD if he would like swallow eval and treat. Per MD no new orders.
[2019-07-05] MEDS: CefTRIAXone/D5W-Rocephin 1gm 50 ML IV SCH (09:49)
[2019-07-05 11:42] VITALS: BP 125/68
[2019-07-05] MEDS: dextrose 5%-1/2 normal saline 1,000 ML IV SCH (12:08)
[2019-07-05] MEDS: metroNIDAZOLE-Flagyl 500mg/NS 100 ML IV SCH ×2 (12:25→16:00)
--- NOTE | 2019-07-05 18:25 | NUR ---
Patient in room [facility]OCELYNN 358. I have received report from GUILLERMO Bobo and had the opportunity to ask questions and assume patient care.
[2019-07-05 18:30] VITALS: BP 144/75
--- NOTE | 2019-07-05 18:36 | NUR ---
Problems reprioritized. Patient report given, questions answered & plan of care reviewed with GUILLERMO Coleman and GUILLERMO Sarmiento.
[2019-07-05] MEDS: diphenhydrAMINE 25mg capsule PO SCH (20:10)
--- NOTE | 2019-07-05 20:30 | NUR ---
Bladder scan mzeuskmub=194 mL post void residual vol. Talked to Dr. Fleming informed of ALOC and residual vol. Per Dr. Fleming, pressley catheter is to be ordered. Also requested for swallow eval due to unable to swallow PO meds and intermittent cough after swallowing fluids and food. Order placed for swallow eval.
[2019-07-05] MEDS: insulin glargine (Lantus) pen - multi-dose SQ SCH (21:00)
--- NOTE | 2019-07-05 21:25 | NUR ---
Pt had a large incontinent void. Bladder scan performed= approx. 140 mL post void residual. Held FC. Will continue to monitor.
[2019-07-06] MEDS: metroNIDAZOLE-Flagyl 500mg/NS 100 ML IV SCH ×3 (00:13→16:15)
[2019-07-06] MEDS: dextrose 5%-1/2 normal saline 1,000 ML IV SCH ×3 (00:13→22:52)
[2019-07-06 00:15] VITALS: BP 143/72
--- NOTE | 2019-07-06 01:00 | NUR ---
Pt with large incontinent void. Bladder scan performed, 575 mL post void residual. Will continue to monitor.
--- NOTE | 2019-07-06 03:43 | NUR ---
Pt with moderate amt of incontinent void. Bladder scan performed, 483 mL post residual void. Will continue to monitor.
[2019-07-06 05:28] LABS: BASOPHILS % (AUTO) 0.2 % (0-1); EOSINOPHILS # (AUTO) 0.4 X10'3 (0-0.9); EOSINOPHILS % (AUTO) 3.1 % (0-6); HEMATOCRIT 34.3 % (42.0-52.0); HEMOGLOBIN 11.5 g/dl (14.0-17.9); LYMPHOCYTES % (AUTO) 16.9 % (21-51); MEAN CORPUSCULAR HEMOGLOBIN 30.6 PG (27.0-31.0); MEAN CORPUSCULAR HGB CONC 33.7 g/dL (33.0-36.5); MEAN CORPUSCULAR VOLUME 90.9 FL (78-98); MEAN PLATELET VOLUME 9.2 FL (7.4-10.4); MONOCYTES % (AUTO) 8.9 % (2-12); NEUTROPHILS # (AUTO) 8.3 X10'3 (1.8-7.7); NEUTROPHILS % (AUTO) 70.9 % (42-75); PLATELET COUNT 246 X10'3 (140-440); RED BLOOD COUNT 3.77 X10'6 (4.70-6.10); RED CELL DISTRIBUTION WIDTH 14.8 % (11.5-14.5); WHITE BLOOD COUNT 11.7 X10'3 (4.5-11.0)
[2019-07-06 05:53] LABS: ALBUMIN 2.2 G/DL (3.4-5.0); ANION GAP 8 (8-16); BLOOD UREA NITROGEN 16 MG/DL (7-18); BUN/CREATININE RATIO 18.4 (5.4-32.0); CALCIUM 8.9 MG/DL (8.5-10.1); CHLORIDE 105 MMOL/L (99-107); CREATININE 0.87 MG/DL (0.60-1.10); GLUCOSE 160 MG/DL (70-104); SODIUM 141 MMOL/L (135-145); TOTAL CARBON DIOXIDE 27.6 MMOL/L (24-32); eGFR 83 ML/MIN
[2019-07-06 05:58] LABS: POTASSIUM 2.9 MMOL/L (3.5-5.1)
--- NOTE | 2019-07-06 06:10 | NUR ---
Pt voided after bladder scan was performed with apprx 600 mL. FC placed.
--- NOTE | 2019-07-06 06:30 | NUR ---
Patient in room [facility]OCELYNN 358. I have received report from Guillermina LI and had the opportunity to ask questions and assume patient care.
--- NOTE | 2019-07-06 06:46 | NUR ---
Problems reprioritized. Patient report given, questions answered & plan of care reviewed with GUILLERMO Matias.
[2019-07-06 07:25] VITALS: BP 115/85
[2019-07-06] MEDS: CefTRIAXone/D5W-Rocephin 1gm 50 ML IV SCH (08:09)
[2019-07-06] MEDS: OLANZAPINE 5 MG TABLET PO SCH (08:11)
[2019-07-06] MEDS: vitamin D (cholecalciferol) 1,000 unit tablet PO SCH (08:11)
[2019-07-06] MEDS: metoprolol tartrate 50mg tablet PO SCH ×2 (08:11→20:03)
[2019-07-06] MEDS: lactobacillus rhamnosus 10,000 MMU CELLS/CAPSULE PO SCH ×2 (08:11→20:02)
[2019-07-06] MEDS: furosemide 40mg tablet PO SCH ×2 (08:12→20:02)
[2019-07-06] MEDS: atorvastatin 20mg tablet PO SCH (08:12)
[2019-07-06] MEDS: potassium Cl 20 mEq SR tablet PO SCH (08:12)
[2019-07-06] MEDS: isosorbide mononitrate 30mg tab.SR.24H PO SCH (08:12)
[2019-07-06] MEDS: clopidogrel 75mg tablet PO SCH (08:12)
[2019-07-06] MEDS: levoTHYROXINE 100mcg tablet PO SCH (08:12)
[2019-07-06] MEDS: potassium Cl 20 mEq SR tablet PO PRN ×3 (09:50→17:37)
[2019-07-06] MEDS: azithromycin/NS 500mg/250ml 250 ML IV SCH (09:54)
[2019-07-06 10:32] LABS: MAGNESIUM 1.5 MG/DL (1.5-2.4)
[2019-07-06] MEDS: tamsulosin 0.4mg capsule PO SCH (11:44)
--- NOTE | 2019-07-06 12:17 | NUR ---
PAGER ID: [phone] MESSAGE: [phone] Needs a sitter order please. Polly [phone]
[2019-07-06 16:38] VITALS: BP 115/64
--- NOTE | 2019-07-06 17:44 | NUR ---
PT refused final dose of K-DUR
[2019-07-06] MEDS: NUT.TX.IMP.RENAL FXN,LAC-REDUC (Nepro) 237 ML VANILLA PO SCH (18:00)
[2019-07-06 18:15] VITALS: BP 129/75
--- NOTE | 2019-07-06 18:28 | NUR ---
Patient in room [facility]OC[facility] 358. I have received report from GUILLERMO Matias and had the opportunity to ask questions and assume patient care.
[2019-07-06] MEDS: diphenhydrAMINE 25mg capsule PO SCH (20:04)
[2019-07-06] MEDS: insulin glargine (Lantus) pen - multi-dose SQ SCH (21:00)
--- NOTE | 2019-07-06 22:05 | NUR ---
Bladder scan performed, 598 mL post void residual. Will performed straight cath.
--- NOTE | 2019-07-06 22:50 | NUR ---
Pt with incontinent void. Bladder scan performed, 451 mL post void residual. Straight cath not performed. Will continue to monitor.
--- NOTE | 2019-07-07 00:05 | NUR ---
Pt with incontinent void. Bladder scan performed, 434 mL post void residual. Will continue to monitor.
[2019-07-07 00:15] VITALS: BP 153/81
[2019-07-07] MEDS: metroNIDAZOLE-Flagyl 500mg/NS 100 ML IV SCH ×2 (01:16→07:15)
--- NOTE | 2019-07-07 01:30 | NUR ---
Bladder scan performed, 583 mL post void residual. Straight cath performed, 400 mL collected, clear, yellow, no odor urine. Pt tolerated well. Will continue to monitor.
[2019-07-07 04:47] LABS: BASOPHILS % (AUTO) 0.2 % (0-1); EOSINOPHILS # (AUTO) 0.3 X10'3 (0-0.9); EOSINOPHILS % (AUTO) 2.3 % (0-6); HEMATOCRIT 34.9 % (42.0-52.0); HEMOGLOBIN 11.6 g/dl (14.0-17.9); LYMPHOCYTES % (AUTO) 16.7 % (21-51); MEAN CORPUSCULAR HEMOGLOBIN 30.3 PG (27.0-31.0); MEAN CORPUSCULAR HGB CONC 33.3 g/dL (33.0-36.5); MONOCYTES % (AUTO) 8.6 % (2-12); NEUTROPHILS # (AUTO) 8.7 X10'3 (1.8-7.7); NEUTROPHILS % (AUTO) 72.2 % (42-75); PLATELET COUNT 277 X10'3 (140-440); RED BLOOD COUNT 3.84 X10'6 (4.70-6.10); RED CELL DISTRIBUTION WIDTH 14.7 % (11.5-14.5)
[2019-07-07 05:03] LABS: ALBUMIN 2.2 G/DL (3.4-5.0); ANION GAP 8 (8-16); BLOOD UREA NITROGEN 15 MG/DL (7-18); BUN/CREATININE RATIO 16.1 (5.4-32.0); CALCIUM 9.5 MG/DL (8.5-10.1); CHLORIDE 105 MMOL/L (99-107); CREATININE 0.93 MG/DL (0.60-1.10); GLUCOSE 154 MG/DL (70-104); POTASSIUM 3.5 MMOL/L (3.5-5.1); SODIUM 139 MMOL/L (135-145); TOTAL CARBON DIOXIDE 26.3 MMOL/L (24-32); eGFR 77 ML/MIN
--- NOTE | 2019-07-07 05:13 | NUR ---
No incontinent episodes since last scan. Bladder scan performed, 569 mL. Straight cath performed, 290 mL output, clear, sj, no odor. Pt tolerated well. Will continue to monitor.
[2019-07-07] MEDS: dextrose 5%-1/2 normal saline 1,000 ML IV SCH (05:54)
--- NOTE | 2019-07-07 06:51 | NUR ---
Problems reprioritized. Patient report given, questions answered & plan of care reviewed with GUILLERMO Gardner, and GUILLERMO Nichole.
--- NOTE | 2019-07-07 06:52 | NUR ---
Patient in room JOCELYNN 358. I have received report from Virginia LI and had the opportunity to ask questions and assume patient care.
--- NOTE | 2019-07-07 07:04 | NUR ---
Patient in room JOCELYNN 358. I have received report from Virginia LI and had the opportunity to ask questions and assume patient care.
[2019-07-07] MEDS: metoprolol tartrate 50mg tablet PO SCH (07:28)
[2019-07-07] MEDS: atorvastatin 20mg tablet PO SCH (07:28)
[2019-07-07] MEDS: potassium Cl 20 mEq SR tablet PO SCH (07:29)
[2019-07-07] MEDS: furosemide 40mg tablet PO SCH (07:29)
[2019-07-07] MEDS: isosorbide mononitrate 30mg tab.SR.24H PO SCH (07:29)
[2019-07-07] MEDS: clopidogrel 75mg tablet PO SCH (07:30)
[2019-07-07] MEDS: vitamin D (cholecalciferol) 1,000 unit tablet PO SCH (07:31)
[2019-07-07] MEDS: levoTHYROXINE 100mcg tablet PO SCH (07:31)
[2019-07-07] MEDS: lactobacillus rhamnosus 10,000 MMU CELLS/CAPSULE PO SCH (07:31)
[2019-07-07] MEDS: OLANZAPINE 5 MG TABLET PO SCH (07:31)
[2019-07-07] MEDS: tamsulosin 0.4mg capsule PO SCH (07:32)
[2019-07-07 08:00] VITALS: BP 144/77
[2019-07-07] MEDS: NUT.TX.IMP.RENAL FXN,LAC-REDUC (Nepro) 237 ML VANILLA PO SCH (08:00)
[2019-07-07] MEDS ORDERED: tamsulosin 0.4mg capsule PO SCH (08:00)
[2019-07-07] MEDS ORDERED: METR500T PO (09:11)
[2019-07-07] MEDS ORDERED: LEVO750T21 PO (09:11)
[2019-07-07] MEDS ORDERED: tamsulosin capsule PO (09:11)
[2019-07-07] MEDS: azithromycin/NS 500mg/250ml 250 ML IV SCH (09:53)
[2019-07-07] MEDS: CefTRIAXone/D5W-Rocephin 1gm 50 ML IV SCH (09:53)
--- NOTE | 2019-07-07 15:28 | NUR ---
Pt D/C to [facility] in stable condition. IV removed, discharge instruction sent with [facility] person. Pt left the hospital accompanied driver guard via [employer].
== END 2019-07-07 14:12 | disposition home or self-care (01) | DRG 177 ==
LOC: ER 14:43 → ED HOLD 17:35 → SUR 3N 23:02
PROVIDERS: ADMIT Internal Medicine; ATTEND Internal Medicine
DX: J69.0 Pneumonitis due to inhalation of food and vomit (principal); G93.41 Metabolic encephalopathy; E43 Unspecified severe protein-calorie malnutrition; E03.9 Hypothyroidism, unspecified; E11.9 Type 2 diabetes mellitus without complications; E78.00 Pure hypercholesterolemia, unspecified; E78.5 Hyperlipidemia, unspecified; F02.80 Dementia in other diseases classified elsewhere, unspecified severity, without behavioral disturbance, psychotic disturbance, mood disturbance, and anxiety; Z68.28 Body mass index [BMI] 28.0-28.9, adult; F41.9 Anxiety disorder, unspecified; Z79.899 Other long term (current) drug therapy; G30.9 Alzheimer's disease, unspecified; R33.9 Retention of urine, unspecified; I11.9 Hypertensive heart disease without heart failure; I48.91 Unspecified atrial fibrillation; R13.10 Dysphagia, unspecified; Z79.02 Long term (current) use of antithrombotics/antiplatelets; Z79.84 Long term (current) use of oral hypoglycemic drugs; E87.6 Hypokalemia
CPT/HCPCS: 36415; 70450; 71045; 74176; 80048; 80053; 81001; 82948; 83605; 83735; 83880; 84132; 84145; 84484; 85025; 85610; 85730; 87040; 87081; 92508; 92616; 93005; 96365; 96368; 99285; G0378; J0456; J0692; J0696; J1815; J3370; J3475; J3480; J3490; Q0163

== ENCOUNTER 2019-07-14 01:04 | Emergency (ER) | payer MEDICARE ==
[~2019-07-14] VITALS: Ht 165.1 cm; Wt 81.6 kg
[~2019-07-14 01:04] MED LIST changes: -DIPH-423 PO; +DIPH25CA83 PO; +LORA-268 PO; -LORA-269 PO; +METR500T PO; +tamsulosin capsule PO
[2019-07-14] MEDS ORDERED: normal saline 1000ML IV soln IVB ONE (01:20)
--- NOTE | 2019-07-14 01:21 | NUR ---
Pt. transported to CT by tech at this time.
--- NOTE | 2019-07-14 01:33 | NUR ---
Pt. returned back to room 13 at this time.
--- NOTE | 2019-07-14 01:54 | NUR ---
TRAUMA CALLED OFF BY DR MORRISSEY AT [phone]
[2019-07-14 02:00] LABS: BASOPHILS # (AUTO) 0.1 X10'3 (0-0.2); BASOPHILS % (AUTO) 0.4 % (0-1); EOSINOPHILS # (AUTO) 0.1 X10'3 (0-0.9); EOSINOPHILS % (AUTO) 0.9 % (0-6); HEMATOCRIT 40.1 % (42.0-52.0); HEMOGLOBIN 13.4 g/dl (14.0-17.9); LYMPHOCYTES # (AUTO) 1.6 X10'3 (1.1-4.8); LYMPHOCYTES % (AUTO) 10.2 % (21-51); MEAN CORPUSCULAR HEMOGLOBIN 30.3 PG (27.0-31.0); MEAN CORPUSCULAR HGB CONC 33.4 g/dL (33.0-36.5); MEAN CORPUSCULAR VOLUME 90.8 FL (78-98); MEAN PLATELET VOLUME 9.1 FL (7.4-10.4); MONOCYTES % (AUTO) 6.5 % (2-12); NEUTROPHILS # (AUTO) 12.9 X10'3 (1.8-7.7); PLATELET COUNT 394 X10'3 (140-440); RED BLOOD COUNT 4.41 X10'6 (4.70-6.10); RED CELL DISTRIBUTION WIDTH 14.6 % (11.5-14.5); WHITE BLOOD COUNT 15.7 X10'3 (4.5-11.0)
[2019-07-14 02:03] LABS: CLARITY,URINE SLIGHTLY CLOUDY (Clear); COLOR,URINE YELLOW (Yellow); GLUCOSE, URINE NEGATIVE (Neg); KETONES,URINE NEGATIVE (Neg); LEUKOCYTE ESTERASE ,URINE NEGATIVE (Neg); NITRITES, URINE NEGATIVE (Neg); OCCULT BLOOD,URINE LARGE (Neg); PROTEIN,URINE TRACE mg/dl (Neg); UROBILINOGEN,URINE 0.2 E.U/dL (0.2-1.0)
[2019-07-14 02:06] LABS: UA COLLECTION TYPE STRAIGHT CATH
[2019-07-14 02:12] LABS: PARTIAL THROMBOPLASTIN TIME 31 SECONDS (22-32)
[2019-07-14 02:14] LABS: ALANINE AMINOTRANSFERASE 37 U/L (12-78); ALBUMIN 3.1 G/DL (3.4-5.0); ALBUMIN/GLOBULIN RATIO 0.6 (1.1-1.5); ALKALINE PHOSPHATASE 133 IU/L (46-116); ANION GAP 10 (8-16); ASPARTATE AMINO TRANSFERASE 28 U/L (10-37); BILIRUBIN,TOTAL 0.7 MG/DL (0.1-1.0); BLOOD UREA NITROGEN 29 MG/DL (7-18); BUN/CREATININE RATIO 24.8 (5.4-32.0); CALCIUM 9.6 MG/DL (8.5-10.1); CHLORIDE 101 MMOL/L (99-107); CREATININE 1.17 MG/DL (0.60-1.10); GLUCOSE 128 MG/DL (70-104); POTASSIUM 3.8 MMOL/L (3.5-5.1); SODIUM 139 MMOL/L (135-145); TOTAL CARBON DIOXIDE 27.8 MMOL/L (24-32); eGFR 59 ML/MIN
[2019-07-14 02:17] LABS: TROPONIN I < 0.04 NG/ML (0.0-0.05)
[2019-07-14 02:23] LABS: RBC,URINE 50-100 /HPF (0-2); WBC,URINE 0-4 /HPF (0-4)
[2019-07-14 02:24] LABS: BACTERIA,URINE NONE SEEN /HPF (Neg); MUCUS STRANDS FEW /LPF (Neg); SQUAMOUS EPITHELIAL CELL,UR FEW /LPF (FEW)
[2019-07-14 02:55] LABS: CREATINE KINASE 62 U/L (39-308)
[2019-07-14 05:09] VITALS: BP 134/67
== END 2019-07-14 05:14 | disposition home or self-care (01) ==
LOC: ER 01:04
DX: F03.90 Unspecified dementia, unspecified severity, without behavioral disturbance, psychotic disturbance, mood disturbance, and anxiety (principal); I48.91 Unspecified atrial fibrillation; I11.0 Hypertensive heart disease with heart failure; I50.9 Heart failure, unspecified; E78.00 Pure hypercholesterolemia, unspecified; E11.9 Type 2 diabetes mellitus without complications; Z79.01 Long term (current) use of anticoagulants; Z79.899 Other long term (current) drug therapy; W18.30XA Fall on same level, unspecified, initial encounter; Y93.89 Activity, other specified; Y92.89 Other specified places as the place of occurrence of the external cause; Y99.9 Unspecified external cause status
CPT/HCPCS: 36415; 70450; 71045; 72125; 80053; 81001; 82550; 84484; 85025; 85610; 85730; 93005; 99284; J7040